=== PATIENT | female | born 1935 | race Caucasian/White ===

== ENCOUNTER 2016-09-24 09:38 | Outpatient (CLI) | payer MEDICARE, OTHER | END 2016-09-24 09:39 | disposition home or self-care (01) | DX: R30.0 Dysuria (principal); R31.9 Hematuria, unspecified ==

== ENCOUNTER 2016-12-03 10:40 | Outpatient (CLI) | payer MEDICARE, OTHER | END 2016-12-03 10:41 | disposition home or self-care (01) | DX: Z12.31 Encounter for screening mammogram for malignant neoplasm of breast (principal); Z80.3 Family history of malignant neoplasm of breast ==

== ENCOUNTER 2017-12-09 16:13 | Outpatient (CLI) | payer MEDICARE, OTHER ==
--- NOTE | 2017-12-10 13:23 | Mammography Report ---
DIGITAL SCREENING MAMMOGRAM: 12/09/2017 CLINICAL INDICATION: An 82-year-old with a family history of breast cancer for screening. COMPARISON: 11/2016, 11/2015, 02/2014, 05/2010. TECHNIQUE: Routine CC and MLO projections were obtained of the breasts. FINDINGS: The breasts demonstrate scattered fibroglandular densities bilaterally. Coarse and punctate, typically benign calcifications are present. No suspicious masses, clustered microcalcifications, or regions of architectural distortion are identified. IMPRESSION: BENIGN FINDINGS. RECOMMENDATION: Routine annual screening unless otherwise clinically indicated. BI-RADS CATEGORY 2 - BENIGN FINDINGS. STANDARD QUALIFYING STATEMENTS: 1. This examination was reviewed with the aid of Computer-Aided Detection (CAD). 2. A negative or benign imaging report should not delay biopsy if clinically suspicious findings are present. Consider surgical consultation if warranted. More than 5% of cancers are not identified by imaging. 3. Dense breasts may obscure an underlying neoplasm. TD: 12/10/2017 13:14
== END 2017-12-09 16:14 | disposition home or self-care (01) ==
LOC: DI 16:13
PROVIDERS: ATTEND Family Medicine
DX: Z12.31 Encounter for screening mammogram for malignant neoplasm of breast (principal); Z80.3 Family history of malignant neoplasm of breast
CPT/HCPCS: 77067

== ENCOUNTER 2018-02-23 10:14 | Emergency (ER) | payer MEDICARE, OTHER ==
--- NOTE | 2018-02-23 12:12 | ED Physician Documentation ---
PD HPI CHEST PAIN - Stated complaint Stated Complaint: SOA - Chief complaint Chief Complaint: Resp - History obtained from History obtained from: Patient, Family - History of Present Illness Timing - onset: Other (This is an 82-year-old woman with history of sick sinus syndrome, A. fib, pacemaker in place and on Pradaxa. She had a coronary angiogram 3 weeks ago that was clean per her. Over the last couple weeks she had a viral syndrome with cough, got better with an inhaler. Now over 2 weeks she has a dry cough and over the last couple of days has developed profound fatigue. She denies pedal edema. She is more short of breath over the last couple of days but still not bringing anything up with cough. She denies fevers or chills. She has no sick contacts.) Review of Systems Ten Systems: 10 systems reviewed and negative Constitutional: reports: Fatigue. denies: Fever, Chills, Weight Loss Nose: denies: Rhinorrhea / runny nose Cardiac: denies: Chest pain / pressure, Palpitations, Pedal edema, Calf pain Respiratory: reports: Dyspnea, Cough. denies: Hemoptysis, Wheezing GI: reports: Diarrhea (A few weeks ago, gone). denies: Abdominal Pain, Nausea PD PAST MEDICAL HISTORY - Past Medical History Cardiovascular: Hypertension, Atrial fibrillation GI: GERD Musculoskeletal: Rheumatoid arthritis Derm: Other - Past Surgical History Past Surgical History: Yes General: Cholecystectomy, Appendectomy Ortho: Rotator cuff repair Cardiovascular: Pacemaker - Present Medications Home Medications: Ambulatory Orders Medication Instructions Recorded Confirmed Atenolol 50 mg PO BID 01/28/14 01/28/14 Calcium Carbonate [Calcium] 600 mg PO DAILY 01/28/14 01/28/14 Celecoxib [CeleBREX] 200 mg PO ONCE 01/28/14 01/28/14 Cholecalciferol (Vitamin D3) 1 tab PO DAILY 01/28/14 01/28/14 [Vitamin D] Dabigatran Etexilate Mesylate 1 cap PO BID 01/28/14 01/28/14 [Pradaxa] Morphine Sulfate 1 - 2 tab PO DAILY 01/28/14 01/28/14 Omeprazole 40 mg PO BID 01/28/14 01/28/14 Propafenone [Rythmol] 2 tab PO BID 01/28/14 01/28/14 Zolpidem Tartrate [Ambien] 5 mg PO DAILY 01/28/14 01/28/14 Meclizine [Antivert] 12.5 - 25 mg PO Q6H PRN #20 tablet 04/10/16 Ondansetron Odt [Zofran] 4 mg TL Q6H PRN #10 tablet 04/10/16 - Allergies Allergies/Adverse Reactions: Allergies Allergy/AdvReac Type Severity Reaction Status Date / Time pentazocine lactate * AdvReac Unknown Unknown Verified 04/10/16 11:37 [From Mildred] novacaine AdvReac Severe paralyzed Uncoded 01/28/14 20:35 - Social History Does the pt smoke?: No Smoking Status: Never smoker Does the pt drink ETOH?: No Does the pt have substance abuse?: No - Family History Family history: reports: Non contributory - Immunizations Immunizations are current?: Yes PD ED PE NORMAL - Vitals Vital signs reviewed: Yes - General General: Alert and oriented X 3, No acute distress - HEENT HEENT: PERRL, EOMI - Neck Neck: Supple, no meningeal sign, No bony TTP - Cardiac Cardiac: RRR, No murmur - Respiratory Respiratory: No respiratory distress, Clear bilaterally - Abdomen Abdomen: Normal bowel sounds, Soft, Non tender - Back Back: No CVA TTP, No spinal TTP - Derm Derm: Normal color, Warm and dry - Extremities Extremities: No edema, No calf tenderness / cord - Neuro Neuro: Alert and oriented X 3, Normal speech Results - Vitals Vitals: Vital Signs - 24 hr 02/23/18 10:18 Temperature 36.1 C L Heart Rate 78 Respiratory 20 Rate Blood Pressure 133/71 H O2 Saturation 97 Oxygen O2 Source Room air - EKG (time done) 1046 Rate: Rate (enter#) (70) Rhythm: Paced [place]: Normal Intervals: Normal [place] Ischemia: Normal ST segments Computer interpretation: Agree with computer - Labs Labs: Laboratory Tests 02/23/18 02/23/18 02/23/18 12:25 12:25 12:25 WBC 8.4 RBC 4.41 Hgb 12.7 Hct 36.9 L MCV 83.7 MCH 28.9 MCHC 34.5 RDW 13.9 Plt Count 314 MPV 7.6 L Neut # (Auto) 6.1 Lymph # (Auto) 1.6 [place] # (Auto) 0.5 Eos # (Auto) 0.1 Baso # (Auto) 0.1 Absolute Nucleated RBC 0.00 Nucleated RBC % 0.0 Sodium 135 Potassium 4.3 Chloride 105 Carbon Dioxide 23 Anion Gap 7.0 BUN 17 Creatinine 0.8 Estimated GFR (MDRD) 69 L Glucose 118 H Calcium 9.0 Total Bilirubin 0.7 AST 26 ALT 20 Alkaline Phosphatase 87 Troponin I < 0.04 Total Protein 7.1 Albumin 3.6 Globulin 3.5 Albumin/Globulin Ratio 1.0 Lipase 39 - Rads (name of study) 1v chest Radiology: EMP read contemporaneously (Pacemaker in place without acute disease) PD MEDICAL DECISION MAKING - ED course ED course: 82-year-old woman presents with dry cough, fatigue, and shortness of breath. She has had a pretty extensive outpatient workup for the shortness of breath which for her is been negative. Her vital signs, and diagnostics here within normal limits. - Sepsis Event Vital Signs: Vital Signs - 24 hr 02/23/18 10:18 Temperature 36.1 C L Heart Rate 78 Respiratory 20 Rate Blood Pressure 133/71 H O2 Saturation 97 Oxygen O2 Source Room air Departure - Departure Disposition: 01 Home, Self Care Clinical Impression: Dyspnea Qualifiers: Dyspnea type: other forms of dyspnea Qualified Code(s): R06.09 - Other forms of dyspnea Fatigue Qualifiers: Fatigue type: unspecified Qualified Code(s): R53.83 - Other fatigue Condition: Good Record reviewed to determine appropriate education?: Yes Instructions: ED Dyspnea Shortness of Breath Comments: Call your doctor to arrange a follow-up appointment, make the next available appointment. In the interim, return anytime if worse or if new symptoms develop.
[2018-02-23 12:33] LABS: BASOPHILS # (AUTO) 0.1 10^3/uL (0.0-0.1); BASOPHILS % (AUTO) 1.2 %; EOSINOPHILS # (AUTO) 0.1 10^3/uL (0.0-0.7); EOSINOPHILS % (AUTO) 1.1 %; HGB - HEMOGLOBIN 12.7 g/dL (12.0-16.0); LYMPHOCYTES # (AUTO) 1.6 10^3/uL (1.5-3.5); LYMPHOCYTES % (AUTO) 19.4 %; MEAN CORPUSCULAR HEMOGLOBIN 28.9 pg (27.0-31.0); MEAN CORPUSCULAR HGB CONC 34.5 g/dL (32.0-36.0); MEAN CORPUSCULAR VOLUME 83.7 fL (81.0-99.0); MEAN PLATELET VOLUME 7.6 fL (7.9-10.8); MONOCYTES # (AUTO) 0.5 10^3/uL (0.0-1.0); MONOCYTES % (AUTO) 6.2 %; NEUTROPHILS # (AUTO) 6.1 10^3/uL (1.5-6.6); NEUTROPHILS % (AUTO) 72.1 %; PLT - PLATELET COUNT 314 10^3/uL (130-450); RED BLOOD COUNT 4.41 10^6/uL (4.20-5.40); RED CELL DISTRIBUTION WIDTH 13.9 % (12.0-15.0); WHITE BLOOD COUNT 8.4 x10^3/uL (4.8-10.8)
--- NOTE | 2018-02-23 12:44 | XRAY Report ---
Procedure Date: 02/23/2018 Accession Number: [id number] / [id number] Procedure: XR - Chest 1 View X-Ray CPT Code: 01353 FULL RESULT: EXAM: CHEST RADIOGRAPHY EXAM DATE: 02/23/2018 12:33 PM. CLINICAL HISTORY: Dyspnea. COMPARISON: CHEST 2 VIEW PA/LAT 01/30/2018. TECHNIQUE: 1 view. FINDINGS: Lungs/Pleura: No focal opacities evident. No pleural effusion. No pneumothorax. Mediastinum: Within exam limitations, the cardiomediastinal contour is normal. Other: Cardiac pacemaker, configuration unchanged. IMPRESSION: No acute cardiopulmonary abnormality. RADIA
[2018-02-23 12:52] LABS: ALBUMIN 3.6 g/dL (3.2-5.5); BILIRUBIN,TOTAL 0.7 mg/dL (0.2-1.0); CREATININE 0.8 mg/dL (0.4-1.0); TOTAL PROTEIN 7.1 g/dL (6.7-8.2)
[2018-02-23 13:53] VITALS: BP 117/62
== END 2018-02-23 13:53 | disposition home or self-care (01) ==
LOC: ED 10:14
DX: R06.09 Other forms of dyspnea (principal); R53.83 Other fatigue; I10 Essential (primary) hypertension; I48.91 Unspecified atrial fibrillation; Z95.0 Presence of cardiac pacemaker; Z79.01 Long term (current) use of anticoagulants
CPT/HCPCS: 36415; 71045; 80053; 83690; 84484; 85025; 93005; 99283

== ENCOUNTER 2018-02-25 08:00 | Outpatient (CLI) | payer MEDICARE, OTHER ==
[2018-02-25 19:20] LABS: HB2 TOTAL 13.1 g/dL; HEMOGLOBIN A1C 0.55 g/dL
[2018-02-25 19:43] LABS: CHOL/HDL RATIO 3.2 (<4.4); CHOLESTEROL 170 mg/dL; HDL CHOLESTEROL 53 mg/dL; LDL CHOLESTEROL,CALCULATED 102 mg/dL; LDL/HDL RATIO 1.9 (<4.4); VLDL CHOLESTEROL 15 mg/dL
== END 2018-02-25 08:01 | disposition home or self-care (01) ==
LOC: LAB.WCP 08:00
PROVIDERS: ATTEND Family Medicine
DX: E78.5 Hyperlipidemia, unspecified (principal); R73.9 Hyperglycemia, unspecified; R53.83 Other fatigue; I48.0 Paroxysmal atrial fibrillation; K86.1 Other chronic pancreatitis
CPT/HCPCS: 36415; 80061; 83036; 83721; 84443

== ENCOUNTER 2018-03-22 09:42 | Emergency (ER) | payer MEDICARE, OTHER ==
[2018-03-22 09:53] VITALS: BP 135/79
[2018-03-22 10:57] LABS: BILIRUBIN,URINE NEGATIVE (NEGATIVE); CLARITY,URINE CLOUDY (CLEAR); GLUCOSE, URINE (UA) NEGATIVE (NEGATIVE); KETONES,URINE (UA) NEGATIVE (NEGATIVE); LEUKOCYTE ESTERASE, URINE MODERATE (NEGATIVE); NITRITE,URINE NEGATIVE (NEGATIVE); OCCULT BLOOD,URINE LARGE (NEGATIVE); PH,URINE 5.5 PH (5.0-7.5); PROTEIN,URINE NEGATIVE (NEGATIVE); UROBILINOGEN,URINE 0.2 (NORMAL) E.U./dL (NORMAL)
[2018-03-22 11:07] LABS: BACTERIA,URINE None Seen /HPF (None Seen); SQUAMOUS EPITHELIAL CELL,UR FEW Squamous (<= Few); WBC CLUMPS,URINE PRESENT
--- NOTE | 2018-03-22 11:28 | ED Physician Documentation ---
PD HPI FEMALE - Stated complaint Stated Complaint: FEM - Chief complaint Chief Complaint: Abd Pain - History obtained from History obtained from: Patient - History of Present Illness Timing - onset: Today Timing - duration: Hours Timing - details: Gradual onset, Still present Associated symptoms: Dysuria, Urinary frequency Contributing factors: No: Similar symptoms before: Diagnosis (UTI) Recently seen: Emergency Dept (for dyspnea) - Additional information Additional information: 82-year-old female with a former history of bladder cancer has developed urinary tract symptoms. She is having urinary urgency frequency and dysuria and she denies any fever nausea vomiting or flank pain. She has recently had a pacemaker placed and had some dyspnea following that and she states that she is much better after going to cardiac rehab. Review of Systems Constitutional: denies: Fever, Chills Eyes: denies: Decreased vision Ears: denies: Ear pain Nose: denies: Congestion Throat: denies: Sore throat Cardiac: denies: Chest pain / pressure, Palpitations Respiratory: denies: Dyspnea, Cough GI: denies: Abdominal Pain, Nausea, Vomiting, Constipation, Diarrhea : reports: Dysuria, Frequency PD PAST MEDICAL HISTORY - Past Medical History Cardiovascular: Hypertension, Atrial fibrillation GI: GERD Musculoskeletal: Rheumatoid arthritis Derm: Other - Past Surgical History Past Surgical History: Yes General: Cholecystectomy, Appendectomy Ortho: Rotator cuff repair Cardiovascular: Pacemaker - Present Medications Home Medications: Ambulatory Orders Medication Instructions Recorded Confirmed Atenolol 50 mg PO BID 01/28/14 01/28/14 Calcium Carbonate [Calcium] 600 mg PO DAILY 01/28/14 01/28/14 Celecoxib [CeleBREX] 200 mg PO ONCE 01/28/14 01/28/14 Cholecalciferol (Vitamin D3) 1 tab PO DAILY 01/28/14 01/28/14 [Vitamin D] Dabigatran Etexilate Mesylate 1 cap PO BID 01/28/14 01/28/14 [Pradaxa] Morphine Sulfate 1 - 2 tab PO DAILY 01/28/14 01/28/14 Omeprazole 40 mg PO BID 01/28/14 01/28/14 Propafenone [Rythmol] 2 tab PO BID 01/28/14 01/28/14 Zolpidem Tartrate [Ambien] 5 mg PO DAILY 01/28/14 01/28/14 Meclizine [Antivert] 12.5 - 25 mg PO Q6H PRN #20 tablet 04/10/16 Ondansetron Odt [Zofran] 4 mg TL Q6H PRN #10 tablet 04/10/16 Sulfamethoxazole/Trimethoprim 1 each PO BID #14 tablet 03/22/18 [Sulfamethoxazole-Tmp Ds Tablet] - Allergies Allergies/Adverse Reactions: Allergies Allergy/AdvReac Type Severity Reaction Status Date / Time pentazocine lactate * AdvReac Unknown Unknown Verified 03/22/18 09:53 [From Asherwin] novacaine AdvReac Severe paralyzed Uncoded 03/22/18 09:53 - Social History Does the pt smoke?: No Smoking Status: Never smoker Does the pt drink ETOH?: No Does the pt have substance abuse?: No - Immunizations Immunizations are current?: Yes PD ED PE NORMAL - Vitals Vital signs reviewed: Yes (normal ) - General General: Alert and oriented X 3, No acute distress, Well developed/nourished - HEENT HEENT: Atraumatic, PERRL, EOMI - Neck Neck: Supple, no meningeal sign - Respiratory Respiratory: No respiratory distress - Back Back: No CVA TTP, No spinal TTP - Derm Derm: Normal color, Warm and dry, No rash - Extremities Extremities: No deformity, No edema - Neuro Neuro: Alert and oriented X 3, 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, No motor deficit, No sensory deficit, Normal speech Eye Opening: Spontaneous Motor: Obeys Commands Verbal: Oriented GCS Score: 15 - Psych Psych: Normal mood, Normal affect Results - Vitals Vitals: Vital Signs - 24 hr 03/22/18 09:51 Temperature 36.5 C Heart Rate 63 Respiratory 20 Rate Blood Pressure 135/79 H O2 Saturation 96 Oxygen O2 Source Room air - Labs Labs: Laboratory Tests 03/22/18 10:45 Urine Color YELLOW Urine Clarity CLOUDY Urine pH 5.5 Ur Specific [place] >=1.030 H Urine Protein NEGATIVE Urine Glucose (UA) NEGATIVE Urine Ketones NEGATIVE Urine Occult Blood LARGE H Urine Nitrite NEGATIVE Urine Bilirubin NEGATIVE Urine Urobilinogen 0.2 (NORMAL) Ur Leukocyte Esterase MODERATE H Urine RBC 11-25 H Urine WBC >25 H Urine WBC Clumps PRESENT Ur Squamous Epith Cells FEW Squamous Urine Bacteria None Seen Ur Microscopic Review INDICATED Urine Culture Comments INDICATED PD MEDICAL DECISION MAKING - ED course Complexity details: reviewed old records, reviewed results, re-evaluated patient , considered differential, d/w patient ED course: 82-year-old female with bladder symptoms has urinary tract infection and she has tolerated Septra previously. - Sepsis Event Vital Signs: Vital Signs - 24 hr 03/22/18 09:51 Temperature 36.5 C Heart Rate 63 Respiratory 20 Rate Blood Pressure 135/79 H O2 Saturation 96 Oxygen O2 Source Room air Departure - Departure Disposition: 01 Home, Self Care Clinical Impression: Urinary tract infection Qualifiers: Urinary tract infection type: acute cystitis Hematuria presence: with hematuria Qualified Code(s): N30.01 - Acute cystitis with hematuria Condition: Stable Instructions: ED UTI Cystitis Female Follow-Up: Paula Parrish MD [Primary Care Provider] - Prescriptions: Sulfamethoxazole/Trimethoprim [Sulfamethoxazole-Tmp Ds Tablet] 1 each PO BID # 14 tablet Discharge Date/Time: 03/22/18 11:34
== END 2018-03-22 11:34 | disposition home or self-care (01) ==
LOC: ED 09:42
DX: N30.01 Acute cystitis with hematuria (principal); I10 Essential (primary) hypertension; Z95.0 Presence of cardiac pacemaker; Z85.51 Personal history of malignant neoplasm of bladder
CPT/HCPCS: 81001; 81003; 87077; 87086; 87181; 99283

== ENCOUNTER 2018-03-30 11:12 | Outpatient (CLI) | payer MEDICARE, OTHER ==
--- NOTE | 2018-03-30 12:29 | XRAY Report ---
Reason: ARTHRITIS,RT WRIST Procedure Date: 03/30/2018 Accession Number: [id number] / [id number] Procedure: XR - Hand 3 View BILAT CPT Code: FULL RESULT: EXAMS: 1. Right Hand Radiography 2. Left Hand Radiography EXAM DATE: 03/30/2018 11:47 AM. CLINICAL HISTORY: ARTHRITIS,RT WRIST. COMPARISON: None. TECHNIQUE: 3 views each hand. FINDINGS: Right: Bones: No fractures or bone lesions. Joints: There is mild narrowing of the first carpometacarpal joint. There is flattening of the second metacarpal head with intra-joint calcification. There is moderate joint space narrowing of the third metacarpophalangeal joint. There are mild degenerative changes of the first MCP joint and interphalangeal joint. Her graft there is moderate joint space narrowing of the second third and fifth distal interphalangeal joints. There is moderate narrowing of the fourth PIP joint. There is slight radial deviation of the second and third distal phalanges. Soft Tissues: No soft tissue swelling. Left: Bones: No fractures or bone lesions. Joints: There is moderate narrowing of the first carpometacarpal joint. There is moderate narrowing of the first and second MCP joints. There is moderate narrowing of the second and third PIP joints and second DIP joint. There is mild narrowing of the first interphalangeal joint. There is severe narrowing with gull wing deformity of the third DIP joint. Soft Tissues: No soft tissue swelling. 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 RADIA
--- NOTE | 2018-03-30 13:10 | XRAY Report ---
Reason: ARTHRITIS,RT WRIST Procedure Date: 03/30/2018 Accession Number: [id number] / [id number] Procedure: XR - Wrist 4 View RT CPT Code: FULL RESULT: EXAM: RIGHT WRIST RADIOGRAPHY EXAM DATE: 03/30/2018 11:25 AM. CLINICAL HISTORY: ARTHRITIS,RT WRIST. COMPARISON: None. TECHNIQUE: 4 views. FINDINGS: Bones: No fractures or bone lesions. Joints: There are mild degenerative changes of the triscaphe joint and first carpometacarpal joint. Soft Tissues: No soft tissue swelling. IMPRESSION: Mild osteoarthritis of the basal joint and triscaphe joint RADIA
== END 2018-03-30 11:13 | disposition home or self-care (01) ==
LOC: DI 11:12
PROVIDERS: ATTEND Family Medicine
DX: M19.041 Primary osteoarthritis, right hand (principal); M19.042 Primary osteoarthritis, left hand; M19.031 Primary osteoarthritis, right wrist

== ENCOUNTER 2019-06-04 09:13 | Outpatient (CLI) | payer MEDICARE, OTHER ==
--- NOTE | 2019-06-08 10:27 | DEXA Report ---
Reason: OSTEOPOROSIS Procedure Date: 06/04/2019 Accession Number: [id number] / [id number] Procedure: DEX - Dexa Spine and/or Hip CPT Code: Final Report FULL RESULT: EXAM: Dexa Spine and/or Hip DATE: 06/04/2019 9:47 AM CLINICAL HISTORY: OSTEOPOROSIS TECHNIQUE: Dual energy x-ray absorptiometry (DXA) was performed on a [employer] System. Regions measured are the AP Spine, femoral neck, and if needed forearm. COMPARISON: None. In accordance with the International Society for Clinical Densitometry (ISCD) guidelines, data from previous exams may be reanalyzed using current recommendations and techniques. This is done to allow a more accurate basis for comparison with the current study. FINDINGS: The data for the lumbar spine is as follows: BMD (g/cm/cm) T-SCORE Z-SCORE REGION L1 1.133 0.0 0.9 L2 1.344 1.2 2.1 L3 1.418 1.8 2.7 L4 TOTAL 1.297 1.1 2.0 NOTE: All evaluable vertebrae are used for classification The data for the hip is as follows: BMD (g/cm/cm) T-SCORE Z-SCORE REGION Neck 1.053 0.1 1.8 TOTAL 1.107 0.8 2.3 NOTE: The femoral neck or total proximal femur, whichever is lowest, is used for classification. IMPRESSION: THE WHO CLASSIFICATION BASED ON THE INTERNATIONAL REFERENCE STANDARD IS NORMAL. THE FRACTURE RISK IS NOT INCREASED. RECOMMENDATION: Patients with diagnosis of osteoporosis or osteopenia should have regular bone mineral density assessment. For those eligible for Medicare, routine testing is allowed once every 2 years. Testing frequency can be increased for patients who have rapidly progressing disease or for those who are receiving medical therapy to restore bone mass. COMMENT: World Health Organization (WHO) definitions for osteoporosis and osteopenia: NORMAL BMD: T-score at -1.0 or higher, fracture risk is low OSTEOPENIA BMD: T-score between -1.0 and -2.5, fracture risk is increased. OSTEOPOROSIS BMD: T-score at -2.5 or lower, fracture risk is high. National Osteoporosis Foundation recommends: 1. Obtain adequate dietary calcium (at least 1200 mg per day) and vitamin D (400-800 international units per day). 2. Participate, as appropriate, in regular weightbearing and muscle-strengthening exercise. 3. Avoid tobacco use and reduce alcohol and caffeine intake. 4. For more detailed information see the website at www.NOF.org.
== END 2019-06-04 09:14 | disposition home or self-care (01) ==
LOC: DI 09:13
PROVIDERS: ATTEND Family Medicine
DX: N95.8 Other specified menopausal and perimenopausal disorders (principal)
CPT/HCPCS: 77080

== ENCOUNTER 2019-07-19 16:09 | Emergency (ER) | payer MEDICARE, OTHER ==
[2019-07-19 16:51] LABS: BILIRUBIN,URINE NEGATIVE (NEGATIVE); GLUCOSE, URINE (UA) NEGATIVE (NEGATIVE); KETONES,URINE (UA) TRACE mg/dL (NEGATIVE); LEUKOCYTE ESTERASE, URINE MODERATE (NEGATIVE); NITRITE,URINE NEGATIVE (NEGATIVE); OCCULT BLOOD,URINE SMALL (NEGATIVE); PROTEIN,URINE NEGATIVE (NEGATIVE); UROBILINOGEN,URINE 0.2 (NORMAL) E.U./dL (NORMAL)
[2019-07-19 16:53] LABS: CLARITY,URINE HAZY (CLEAR)
[2019-07-19 17:00] LABS: BACTERIA,URINE Many /HPF (None Seen); SQUAMOUS EPITHELIAL CELL,UR MOD Squamous (<= Few)
[2019-07-19] MEDS ORDERED: cephALEXin 250 MG CAPSULE PO STA (17:36)
--- NOTE | 2019-07-19 17:36 | ED Physician Documentation ---
PD HPI FEMALE - Stated complaint Stated Complaint: F - Chief complaint Chief Complaint: UTI - History obtained from History obtained from: Patient - History of Present Illness Timing - details: Abrupt onset Pain level max: 3 Pain level max: 2 Associated symptoms: Dysuria, Urinary frequency. No: Fever Recently seen: Not recently seen - Additional information Additional information: 83-year-old female states that she has had burning and urgency with urination since last night. Worse with urination, nothing makes it better. States feels similar to prior UTIs. No fever. No vomiting. Review of Systems Constitutional: denies: Fever GI: denies: Vomiting, Diarrhea Skin: denies: Rash PD PAST MEDICAL HISTORY - Past Medical History Past Medical History: Yes Cardiovascular: Hypertension, Atrial fibrillation GI: GERD Musculoskeletal: Rheumatoid arthritis Derm: Other - Past Surgical History Past Surgical History: Yes General: Cholecystectomy, Appendectomy Ortho: Rotator cuff repair Cardiovascular: Pacemaker - Present Medications Home Medications: Ambulatory Orders Medication Instructions Recorded Confirmed Atenolol 50 mg PO BID 01/28/14 01/28/14 Calcium Carbonate [Calcium] 600 mg PO DAILY 01/28/14 01/28/14 Celecoxib [CeleBREX] 200 mg PO ONCE 01/28/14 01/28/14 Cholecalciferol (Vitamin D3) 1 tab PO DAILY 01/28/14 01/28/14 [Vitamin D] Dabigatran Etexilate Mesylate 1 cap PO BID 01/28/14 01/28/14 [Pradaxa] Morphine Sulfate 1 - 2 tab PO DAILY 01/28/14 01/28/14 Omeprazole 40 mg PO BID 01/28/14 01/28/14 Propafenone [Rythmol] 2 tab PO BID 01/28/14 01/28/14 Zolpidem Tartrate [Ambien] 5 mg PO DAILY 01/28/14 01/28/14 Meclizine [Antivert] 12.5 - 25 mg PO Q6H PRN #20 tablet 04/10/16 Ondansetron Odt [Zofran] 4 mg TL Q6H PRN #10 tablet 04/10/16 Sulfamethoxazole/Trimethoprim 1 each PO BID #14 tablet 03/22/18 [Sulfamethoxazole-Tmp Ds Tablet] Cephalexin [Keflex] 500 mg PO Q6H #20 capsule 07/19/19 - Allergies Allergies/Adverse Reactions: Allergies Allergy/AdvReac Type Severity Reaction Status Date / Time pentazocine lactate * AdvReac Unknown Unknown Verified 03/22/18 09:53 [From Mildred] roula AdvReac Severe paralyzed Uncoded 03/22/18 09:53 - Social History Does the pt smoke?: No Smoking Status: Never smoker Does the pt drink ETOH?: No Does the pt have substance abuse?: No - Immunizations Immunizations are current?: Yes PD ED PE NORMAL - Vitals Vital signs reviewed: Yes - General General: Alert and oriented X 3, No acute distress - HEENT HEENT: Moist mucous membranes - Abdomen Abdomen: Soft, Non tender, Non distended - Back Back: No CVA TTP - Derm Derm: Warm and dry - Neuro Neuro: Alert and oriented X 3 Results - Vitals Vitals: Vital Signs - 24 hr 07/19/19 07/19/19 16:30 17:57 Temperature 36.6 C Heart Rate 73 70 Respiratory 16 18 Rate Blood Pressure 143/71 H 134/83 H O2 Saturation 96 95 Oxygen O2 Source Room air - Labs Labs: Laboratory Tests 07/19/19 16:42 Urine Color YELLOW Urine Clarity HAZY Urine pH 5.0 Ur Specific [place] >=1.030 H Urine Protein NEGATIVE Urine Glucose (UA) NEGATIVE Urine Ketones TRACE Urine Occult Blood SMALL H Urine Nitrite NEGATIVE Urine Bilirubin NEGATIVE Urine Urobilinogen 0.2 (NORMAL) Ur Leukocyte Esterase MODERATE H Urine RBC 6-10 H Urine WBC >25 H Ur Squamous Epith Cells MOD Squamous H Urine Bacteria Many H Ur Microscopic Review INDICATED Urine Culture Comments NOT INDICATED PD MEDICAL DECISION MAKING - ED course Complexity details: considered differential, d/w patient ED course: Patient with a UTI. Will place on antibiotics for home. No evidence of sepsis or pyelonephritis. Patient counseled regarding signs and symptoms for which I believe and urgent re-evaluation would be necessary. Patient with good understanding of and agreement to plan and is comfortable going home at this time This document was made in part using voice recognition software. While efforts are made to proofread this document, sound alike and grammatical errors may occur. Departure - Departure Disposition: Home, Self Care Clinical Impression: Urinary tract infection Qualifiers: Urinary tract infection type: acute cystitis Hematuria presence: without hematuria Qualified Code(s): N30.00 - Acute cystitis without hematuria Condition: Good Instructions: ED UTI Cystitis Female Follow-Up: MILLIE POSEY MD [Primary Care Provider] - Within 1 week (if not better) Prescriptions: Cephalexin [Keflex] 500 mg PO Q6H #20 capsule Comments: Take all antibiotics until gone. Return if you worsen. Follow-up with your doctor for further care. Discharge Date/Time: 07/19/19 17:57
[2019-07-19 17:58] VITALS: BP 134/83
== END 2019-07-19 17:57 | disposition home or self-care (01) ==
LOC: ED 16:09
DX: N30.00 Acute cystitis without hematuria (principal); I10 Essential (primary) hypertension; I48.91 Unspecified atrial fibrillation; Z79.01 Long term (current) use of anticoagulants
CPT/HCPCS: 81001; 99283; 99284; A9270; 81003; 87086

== ENCOUNTER 2019-08-18 10:44 | Emergency (ER) | payer MEDICARE, OTHER ==
[2019-08-18 11:30] LABS: GLUCOSE, URINE (UA) NEGATIVE (NEGATIVE); KETONES,URINE (UA) TRACE mg/dL (NEGATIVE); LEUKOCYTE ESTERASE, URINE MODERATE (NEGATIVE); NITRITE,URINE NEGATIVE (NEGATIVE); OCCULT BLOOD,URINE LARGE (NEGATIVE); PH,URINE 5.5 PH (5.0-7.5); PROTEIN,URINE 30 mg/dL (NEGATIVE); UROBILINOGEN,URINE 0.2 (NORMAL) E.U./dL (NORMAL)
[2019-08-18 11:36] LABS: BILIRUBIN,URINE NEGATIVE (NEGATIVE); CLARITY,URINE CLEAR (CLEAR); ICTOTEST,URINE NEGATIVE
[2019-08-18 11:37] LABS: BACTERIA,URINE Few /HPF (None Seen); SQUAMOUS EPITHELIAL CELL,UR FEW Squamous (<= Few)
--- NOTE | 2019-08-18 12:58 | ED Physician Documentation ---
PD HPI FEMALE - Stated complaint Stated Complaint: FEMALE - Chief complaint Chief Complaint: UTI - History obtained from History obtained from: Patient, Family - History of Present Illness Timing - onset: Today Timing - duration: Days (1) Timing - details: Abrupt onset, Still present Associated symptoms: Dysuria, Urinary frequency. No: Fever, Vaginal discharge Contributing factors: No: Exposed to STD Similar symptoms before: Diagnosis (UTI in relatively recent past (last year), so wanted to get on symptoms earlier) Recently seen: Not recently seen Review of Systems Constitutional: denies: Fever, Chills, Myalgias GI: reports: Nausea. denies: Abdominal Pain, Vomiting, Diarrhea : reports: Dysuria, Frequency. denies: Discharge Skin: denies: Rash PD PAST MEDICAL HISTORY - Past Medical History Cardiovascular: Atrial fibrillation, Other GI: GERD, Pancreatitis : Other Musculoskeletal: Rheumatoid arthritis Derm: Other Other Past Medical History: Bladder Cx, Pcemaker - Past Surgical History Past Surgical History: Yes General: Cholecystectomy, Appendectomy Ortho: Rotator cuff repair Cardiovascular: Pacemaker HEENT: Cataracts - Present Medications Home Medications: Ambulatory Orders Medication Instructions Recorded Confirmed Atenolol 50 mg PO BID 01/28/14 01/28/14 Calcium Carbonate [Calcium] 600 mg PO DAILY 01/28/14 01/28/14 Celecoxib [CeleBREX] 200 mg PO ONCE 01/28/14 01/28/14 Cholecalciferol (Vitamin D3) 1 tab PO DAILY 01/28/14 01/28/14 [Vitamin D] Dabigatran Etexilate Mesylate 1 cap PO BID 01/28/14 01/28/14 [Pradaxa] Morphine Sulfate 1 - 2 tab PO DAILY 01/28/14 01/28/14 Omeprazole 40 mg PO BID 01/28/14 01/28/14 Propafenone [Rythmol] 2 tab PO BID 01/28/14 01/28/14 Zolpidem Tartrate [Ambien] 5 mg PO DAILY 01/28/14 01/28/14 Meclizine [Antivert] 12.5 - 25 mg PO Q6H PRN #20 tablet 04/10/16 Ondansetron Odt [Zofran] 4 mg TL Q6H PRN #10 tablet 04/10/16 Sulfamethoxazole/Trimethoprim 1 each PO BID #14 tablet 03/22/18 [Sulfamethoxazole-Tmp Ds Tablet] Cephalexin [Keflex] 500 mg PO Q6H #20 capsule 07/19/19 Cephalexin [Keflex] 500 mg PO TID #18 capsule 08/18/19 - Allergies Allergies/Adverse Reactions: Allergies Allergy/AdvReac Type Severity Reaction Status Date / Time pentazocine lactate * AdvReac Unknown Unknown Verified 03/22/18 09:53 [From Talmelody] novacaine AdvReac Severe paralyzed Uncoded 03/22/18 09:53 - Social History Does the pt smoke?: No Smoking Status: Never smoker Does the pt drink ETOH?: No Does the pt have substance abuse?: No - Immunizations Immunizations are current?: Yes PD ED PE NORMAL - Vitals Vital signs reviewed: Yes - General General: Alert and oriented X 3, No acute distress, Well developed/nourished - Abdomen Abdomen: Soft, Non tender - Female Female : Deferred - Rectal Rectal: Deferred - Back Back: No CVA TTP - Derm Derm: Normal color, Warm and dry - Neuro Neuro: Alert and oriented X 3, No motor deficit, Normal speech Results - Vitals Vitals: Vital Signs - 24 hr 08/18/19 08/18/19 10:54 13:28 Temperature 36.0 C L 36.3 C L Heart Rate 77 70 Respiratory 18 16 Rate Blood Pressure 127/74 139/96 H O2 Saturation 97 97 Oxygen O2 Source Room air - Labs Labs: Laboratory Tests 08/18/19 11:00 Urine Color YELLOW Urine Clarity CLEAR Urine pH 5.5 Ur Specific [place] >=1.030 H Urine Protein 30 H Urine Glucose (UA) NEGATIVE Urine Ketones TRACE Urine Occult Blood LARGE H Urine Nitrite NEGATIVE Urine Bilirubin NEGATIVE Urine Urobilinogen 0.2 (NORMAL) Ur Leukocyte Esterase MODERATE H Urine RBC 11-25 H Urine WBC >25 H Ur Squamous Epith Cells FEW Squamous Urine Bacteria Few Ur Microscopic Review INDICATED Urine Culture Comments INDICATED Departure - Departure Disposition: 01 Home, Self Care Clinical Impression: Cystitis Condition: Stable Record reviewed to determine appropriate education?: Yes Instructions: ED UTI Cystitis Female Follow-Up: MILLIE POSEY MD [Primary Care Provider] - Prescriptions: Cephalexin [Keflex] 500 mg PO TID #18 capsule Comments: Stay well-hydrated. Tylenol or ibuprofen if needed for pain or discomfort. Cephalexin antibiotic 3 times a day as directed for the infection. We will do a urine culture and if the infection shows signs of resistance to cephalexin we will call you to change antibiotics. Otherwise we would anticipate improvement over the next 2 to 3 days. Discharge Date/Time: 08/18/19 13:38
[2019-08-18] MEDS ORDERED: cephALEXin 250 MG CAPSULE PO STA (13:18)
[2019-08-18 13:29] VITALS: BP 139/96
== END 2019-08-18 13:38 | disposition home or self-care (01) ==
LOC: ED 10:44
DX: N30.90 Cystitis, unspecified without hematuria (principal); I48.91 Unspecified atrial fibrillation; Z79.01 Long term (current) use of anticoagulants; Z95.0 Presence of cardiac pacemaker
CPT/HCPCS: 81001; 87086; 99283; A9270; 81003

== ENCOUNTER 2019-09-14 15:20 | Outpatient (CLI) | payer MEDICARE, OTHER | END 2019-09-14 23:59 | disposition home or self-care (01) | LOC: LAB.R 15:20 | PROVIDERS: ATTEND Physician Assistant Medical | DX: R30.0 Dysuria (principal) | CPT/HCPCS: 87086; 87181 ==

== ENCOUNTER 2020-04-27 07:36 | Outpatient (CLI) | payer MEDICARE, OTHER | END 2020-04-27 07:37 | disposition home or self-care (01) | LOC: DI 07:36 | PROVIDERS: ATTEND Nurse Practitioner Family | DX: R01.1 Cardiac murmur, unspecified (principal); I48.0 Paroxysmal atrial fibrillation; I49.5 Sick sinus syndrome; I10 Essential (primary) hypertension; I71.2 Thoracic aortic aneurysm, without rupture; I25.10 Atherosclerotic heart disease of native coronary artery without angina pectoris; I34.0 Nonrheumatic mitral (valve) insufficiency | CPT/HCPCS: 93306 ==

== ENCOUNTER 2020-06-13 08:00 | Outpatient (CLI) | payer MEDICARE, OTHER | END 2020-06-13 23:59 | disposition home or self-care (01) | LOC: LAB.R 08:00 | PROVIDERS: ATTEND Nurse Practitioner Family | DX: R30.0 Dysuria (principal) | CPT/HCPCS: 87086 ==

== ENCOUNTER 2020-08-10 08:00 | Outpatient (CLI) | payer MEDICARE, OTHER | END 2020-08-10 23:59 | disposition home or self-care (01) | LOC: LAB.R 08:00 | PROVIDERS: ATTEND Family Medicine | DX: N39.0 Urinary tract infection, site not specified (principal) | CPT/HCPCS: 87077; 87086; 87181 ==

== ENCOUNTER 2021-08-01 08:00 | Outpatient (CLI) | payer MEDICARE, OTHER | END 2021-08-01 23:59 | LOC: LAB.N 08:00 | PROVIDERS: ATTEND Physician Assistant | DX: R30.0 Dysuria (principal) | CPT/HCPCS: 87086; 87181 ==

== ENCOUNTER 2021-08-22 12:09 | Outpatient (CLI) | payer MEDICARE, OTHER | END 2021-08-22 23:59 | disposition home or self-care (01) | LOC: LAB.N 12:09 | PROVIDERS: ATTEND Family Medicine | DX: N39.0 Urinary tract infection, site not specified (principal) | CPT/HCPCS: 87086 ==

== ENCOUNTER 2022-09-09 14:15 | Outpatient (CLI) | payer MEDICARE, OTHER | END 2022-09-09 14:30 | disposition home or self-care (01) | LOC: LAB.N 14:15 | PROVIDERS: ATTEND Family Medicine | DX: R30.0 Dysuria (principal) | CPT/HCPCS: 87086; 87181 ==

== ENCOUNTER 2022-11-19 08:00 | Outpatient (CLI) | payer MEDICARE, OTHER | END 2022-11-19 23:59 | disposition home or self-care (01) | LOC: LAB.N 08:00 | PROVIDERS: ATTEND Family Medicine | DX: K52.9 Noninfective gastroenteritis and colitis, unspecified (principal) | CPT/HCPCS: 83993; 87045; 87046; 87329; 87427; 87493 ==

== ENCOUNTER 2023-05-08 08:00 | Outpatient (CLI) | payer MEDICARE, OTHER | END 2023-05-08 23:59 | disposition home or self-care (01) | LOC: LAB.N 08:00 | PROVIDERS: ATTEND Family Medicine | DX: N39.0 Urinary tract infection, site not specified (principal) | CPT/HCPCS: 87077; 87086; 87181 ==

== ENCOUNTER 2023-10-18 10:30 | Outpatient (CLI) | payer MEDICARE, OTHER | END 2023-10-18 10:45 | disposition home or self-care (01) | LOC: LAB.N 10:30 | PROVIDERS: ATTEND Family Medicine | DX: N39.0 Urinary tract infection, site not specified (principal) | CPT/HCPCS: 87086 ==